=== PATIENT | male | born 1950 | race Caucasian/White ===

== ENCOUNTER 2020-07-05 17:06 | Inpatient (IN) | payer SELFPAY ==
[2020-07-05] MEDS ORDERED: Ondansetron PF 4 MG/2 ML Vial ONE (18:14)
[2020-07-05] MEDS ORDERED: Morphine 4 MG/ML VIAL ONE (18:14)
[2020-07-05] MEDS ORDERED: Morphine 2 MG/ML VIAL SLOW IVP PRN (18:39)
[2020-07-05] MEDS ORDERED: Dextrose 5% in Water 1,000 ML IV PRN (18:39)
[2020-07-05] MEDS ORDERED: hydrALAZINE 20 MG/ML VIAL SLOW IVP PRN (18:39)
[2020-07-05] MEDS ORDERED: Dextrose 50% Abboject 50 ML SYRINGE SLOW IVP PRN (18:39)
[2020-07-05] MEDS ORDERED: traMADol HCl 50 MG TAB PO PRN (18:39)
[2020-07-05] MEDS ORDERED: Ondansetron ODT 4 MG TAB PO PRN (18:39)
[2020-07-05] MEDS ORDERED: Ondansetron PF 4 MG/2 ML Vial IVP PRN (18:39)
[2020-07-05 18:40] LABS: #Lymphocytes 1.1 thou/uL (1.20-3.40); #Monocytes 0.8 thou/uL (0.11-0.59); #Neutrophils 7.4 thou/uL (1.40-6.50); %Basophils 0.3 % (0.0-1.0); %Eosinophils 0.3 % (0.0-10.0); %Lymphocytes 11.7 % (21.0-51.0); %Monocytes 8.9 % (0.0-10.0); %Neutrophils 78.8 % (42.0-75.0); Hemoglobin 16.2 g/dL (14.0-18.0); Mean Corpuscular HGB CONC 34.4 g/dL (32.0-36.0); Mean Corpuscular Hemoglobin 35.5 pg (27.0-31.0); Platelet Count 189 thou/uL (130-400); RBC Distribution Width 11.9 % (11.5-14.5); Red Blood Cell (RBC) Count 4.56 mill/uL (4.70-6.10); White Blood Cell (WBC) Count 9.3 thou/uL (4.8-10.8)
[2020-07-05 18:58] LABS: ALT (SGPT) 12 U/L (8-55); AST (SGOT) 22 U/L (5-34); Albumin 4.3 g/dL (3.4-4.8); Alkaline Phosphatase 77 U/L (40-110); Anion Gap 18 mmol/L (10-20); BUN (Urea Nitrogen) 11 mg/dL (8.4-25.7); Bilirubin, Total 0.8 mg/dL (0.2-1.2); Calc. Creatinine Clearance 0 mL/min (70-130); Calcium 9.1 mg/dL (7.8-10.44); Carbon Dioxide 22 mmol/L (23-31); Chloride 93 mmol/L (98-107); Globulin 3.1 g/dL (2.4-3.5); Glucose 99 mg/dL (83-110); Potassium 3.9 mmol/L (3.5-5.1); Protein, Total 7.4 g/dL (5.8-8.1); Sodium 129 mmol/L (136-145)
[2020-07-05] MEDS: Ibuprofen 600 MG TAB PO SCH (20:29)
[2020-07-05] MEDS: Famotidine 20 MG TAB PO SCH (20:29)
[2020-07-05] MEDS: Senokot S 8.6-50 MG TAB PO SCH (20:29)
[2020-07-05] MEDS: traMADol HCl 50 MG TAB PO PRN (20:30)
[2020-07-05] MEDS: Acetaminophen 325 MG TAB PO SCH (20:30)
[2020-07-05 21:59] VITALS: BMI 17.0
[2020-07-05] MEDS: Sodium Chloride 0.9% 1,000 ML IV SCH (22:41)
[2020-07-06] MEDS: Acetaminophen 325 MG TAB PO SCH ×4 (01:02→21:11)
[2020-07-06] MEDS: Cyclobenzaprine 10 MG TAB PO PRN ×2 (01:02→16:42)
[2020-07-06] MEDS: Ibuprofen 600 MG TAB PO SCH ×3 (03:10→21:12)
[2020-07-06] MEDS: traMADol HCl 50 MG TAB PO PRN ×3 (03:10→21:13)
[2020-07-06 04:35] LABS: SARS-CoV-2 PCR by NAA Not Detected (NotDetected)
[2020-07-06 05:28] LABS: #Basophils 0.1 thou/uL (0.0-0.2); #Eosinphils 0.3 thou/uL (0.0-0.7); #Lymphocytes 1.7 thou/uL (1.20-3.40); #Monocytes 0.7 thou/uL (0.11-0.59); #Neutrophils 4.6 thou/uL (1.40-6.50); %Basophils 0.7 % (0.0-1.0); %Eosinophils 3.9 % (0.0-10.0); %Lymphocytes 22.6 % (21.0-51.0); %Monocytes 9.2 % (0.0-10.0); %Neutrophils 63.6 % (42.0-75.0); Hemoglobin 14.3 g/dL (14.0-18.0); Mean Corpuscular HGB CONC 33.1 g/dL (32.0-36.0); Mean Corpuscular Hemoglobin 34.4 pg (27.0-31.0); Mean Platelet Volume 6.9 fL (7.4-10.4); Platelet Count 168 thou/uL (130-400); Red Blood Cell (RBC) Count 4.16 mill/uL (4.70-6.10); White Blood Cell (WBC) Count 7.3 thou/uL (4.8-10.8)
[2020-07-06 05:36] LABS: PTT 35.5 sec (22.9-36.1); Prothrombin Time 13.8 sec (12.0-14.7)
[2020-07-06 05:49] LABS: Anion Gap 14 mmol/L (10-20); BUN (Urea Nitrogen) 16 mg/dL (8.4-25.7); Calc. Creatinine Clearance 69 mL/min (70-130); Calcium 8.4 mg/dL (7.8-10.44); Carbon Dioxide 24 mmol/L (23-31); Chloride 99 mmol/L (98-107); Glucose 93 mg/dL (80-115); Potassium 3.6 mmol/L (3.5-5.1); Sodium 133 mmol/L (136-145)
[2020-07-06] MEDS ORDERED: Fentanyl 100 MCG/2 ML VIAL ONE ×4 (06:58→11:40)
[2020-07-06] MEDS ORDERED: Midazolam HCl 2 mg/2 ml Vial ONE (06:58)
[2020-07-06] MEDS ORDERED: CEFAZOLIN 2 GM in Premix Bag 1 BAG IVPB SCH (07:30)
[2020-07-06] MEDS: Sodium Chloride 0.9% 1,000 ML IV SCH (07:56)
[2020-07-06 08:50] LABS: Phosphorus 3.8 mg/dL (2.3-4.7)
[2020-07-06] MEDS ORDERED: Dexamethasone 20 MG/5 ML VIAL ONE (09:01)
[2020-07-06] MEDS ORDERED: Glycopyrrolate 0.2 MG/ML 5 ML SYRINGE ONE (09:01)
[2020-07-06] MEDS ORDERED: ePHEDrine 50 MG/ML VIAL ONE (09:01)
[2020-07-06] MEDS ORDERED: PROPOFOL 200 MG/20 ML VIAL ONE (09:01)
[2020-07-06] MEDS ORDERED: Ondansetron PF 4 MG/2 ML Vial ONE (09:01)
[2020-07-06] MEDS ORDERED: PHENYLEPHRINE-NS 100 MCG/ML 10 ML SYRINGE ONE (09:01)
[2020-07-06] MEDS ORDERED: Rocuronium Bromide 10 MG/ML (10ML VIAL) ONE (09:01)
[2020-07-06] MEDS ORDERED: Lidocaine 1% PF 5 ML VIAL ONE (09:01)
[2020-07-06] MEDS: Polyethylene Glycol 3350 17 GM Packet PO SCH (10:10)
[2020-07-06] MEDS: Famotidine 20 MG TAB PO SCH ×2 (10:10→21:12)
[2020-07-06] MEDS: Senokot S 8.6-50 MG TAB PO SCH ×2 (10:10→21:12)
[2020-07-06] MEDS ORDERED: SUGAMMADEX SODIUM 200 MG/2 ML VIAL ONE (10:28)
[2020-07-06] MEDS ORDERED: Promethazine HCl 25 MG/ML VIAL SLOW IVP PRN (10:52)
[2020-07-06] MEDS ORDERED: Promethazine HCl 25 MG/ML VIAL IM PRN (10:52)
[2020-07-06] MEDS ORDERED: Ondansetron HCl/PF 4 MG/2 ML Vial IVP PRN (10:52)
[2020-07-06] MEDS: CEFAZOLIN 2 GM in Premix Bag 1 BAG IVPB SCH ×2 (14:13→21:13)
[2020-07-06] MEDS ORDERED: Potassium Phosphate 15 MMOL in Sodium Chloride 0.9% 250 ML 250 ML IVPB SCH (15:00)
[2020-07-07] MEDS: Ibuprofen 600 MG TAB PO SCH ×3 (04:01→20:25)
[2020-07-07] MEDS: Cyclobenzaprine 10 MG TAB PO PRN ×2 (04:01→15:34)
[2020-07-07] MEDS: Acetaminophen 325 MG TAB PO SCH ×4 (04:02→20:24)
[2020-07-07 06:00] LABS: Hemoglobin 12.2 g/dL (14.0-18.0); Mean Corpuscular HGB CONC 34.5 g/dL (32.0-36.0); Mean Corpuscular Hemoglobin 36.4 pg (27.0-31.0); Mean Platelet Volume 6.9 fL (7.4-10.4); Platelet Count 158 thou/uL (130-400); Red Blood Cell (RBC) Count 3.35 mill/uL (4.70-6.10); White Blood Cell (WBC) Count 8.9 thou/uL (4.8-10.8)
[2020-07-07 06:31] LABS: Anion Gap 13 mmol/L (10-20); BUN (Urea Nitrogen) 13 mg/dL (8.4-25.7); Calc. Creatinine Clearance 79 mL/min (70-130); Calcium 8.2 mg/dL (7.8-10.44); Carbon Dioxide 24 mmol/L (23-31); Chloride 101 mmol/L (98-107); Glucose 126 mg/dL (80-115); Phosphorus 2.8 mg/dL (2.3-4.7); Potassium 3.8 mmol/L (3.5-5.1); Sodium 134 mmol/L (136-145)
[2020-07-07] MEDS: Famotidine 20 MG TAB PO SCH ×2 (08:33→20:24)
[2020-07-07] MEDS: Polyethylene Glycol 3350 17 GM Packet PO SCH (08:34)
[2020-07-07] MEDS: Senokot S 8.6-50 MG TAB PO SCH ×2 (08:34→20:23)
[2020-07-07] MEDS: traMADol HCl 50 MG TAB PO PRN ×2 (08:36→15:34)
[2020-07-07] MEDS ORDERED: Aspirin 81 mg Enteric Coated Tablet PO SCH (10:30)
[2020-07-07] MEDS: Gabapentin 300 MG CAP PO SCH ×2 (14:53→20:23)
[2020-07-07] MEDS: Aspirin 81 mg Enteric Coated Tablet PO SCH (20:23)
[2020-07-08] MEDS: Acetaminophen 325 MG TAB PO SCH ×4 (04:08→20:23)
[2020-07-08] MEDS: traMADol HCl 50 MG TAB PO PRN ×2 (05:20→13:22)
[2020-07-08] MEDS: Cyclobenzaprine 10 MG TAB PO PRN ×2 (05:21→15:14)
[2020-07-08] MEDS: Ibuprofen 600 MG TAB PO SCH ×3 (05:51→20:24)
[2020-07-08 06:00] LABS: Hemoglobin 11.9 g/dL (14.0-18.0); Mean Corpuscular HGB CONC 33.3 g/dL (32.0-36.0); Mean Corpuscular Hemoglobin 35.5 pg (27.0-31.0); Platelet Count 164 thou/uL (130-400); Red Blood Cell (RBC) Count 3.35 mill/uL (4.70-6.10); White Blood Cell (WBC) Count 7.6 thou/uL (4.8-10.8)
[2020-07-08] MEDS: Aspirin 81 mg Enteric Coated Tablet PO SCH ×2 (09:22→20:21)
[2020-07-08] MEDS: Gabapentin 300 MG CAP PO SCH ×3 (09:23→20:22)
[2020-07-08] MEDS: Famotidine 20 MG TAB PO SCH ×2 (09:23→20:21)
[2020-07-08] MEDS: Polyethylene Glycol 3350 17 GM Packet PO SCH (09:24)
[2020-07-08] MEDS: Senokot S 8.6-50 MG TAB PO SCH ×2 (09:24→20:22)
[2020-07-08] MEDS: Lisinopril 5 MG TAB PO SCH (20:21)
[2020-07-09] MEDS: Acetaminophen 325 MG TAB PO SCH ×4 (02:22→20:55)
[2020-07-09] MEDS: Ibuprofen 600 MG TAB PO SCH ×3 (04:00→21:00)
[2020-07-09] MEDS: Gabapentin 300 MG CAP PO SCH ×3 (07:47→21:00)
[2020-07-09] MEDS: Aspirin 81 mg Enteric Coated Tablet PO SCH ×2 (07:47→21:00)
[2020-07-09] MEDS: Polyethylene Glycol 3350 17 GM Packet PO SCH (07:47)
[2020-07-09] MEDS: Famotidine 20 MG TAB PO SCH (07:47)
[2020-07-09] MEDS: Senokot S 8.6-50 MG TAB PO SCH ×2 (07:47→21:01)
[2020-07-09] MEDS: traMADol HCl 50 MG TAB PO PRN ×2 (11:10→20:59)
[2020-07-09] MEDS: Cyclobenzaprine 10 MG TAB PO PRN (14:05)
[2020-07-09] MEDS: Lisinopril 5 MG TAB PO SCH (21:00)
[2020-07-10] MEDS: Acetaminophen 325 MG TAB PO SCH ×4 (02:21→20:29)
[2020-07-10] MEDS: Ibuprofen 600 MG TAB PO SCH ×3 (03:12→20:29)
[2020-07-10] MEDS: traMADol HCl 50 MG TAB PO PRN ×2 (09:27→18:33)
[2020-07-10] MEDS: Aspirin 81 mg Enteric Coated Tablet PO SCH ×2 (09:29→20:28)
[2020-07-10] MEDS: Senokot S 8.6-50 MG TAB PO SCH ×2 (09:29→20:31)
[2020-07-10] MEDS: Polyethylene Glycol 3350 17 GM Packet PO SCH (09:29)
[2020-07-10] MEDS: Gabapentin 300 MG CAP PO SCH ×3 (09:29→20:30)
[2020-07-10] MEDS: Cyclobenzaprine 10 MG TAB PO PRN ×2 (10:13→20:31)
[2020-07-10] MEDS: Lisinopril 5 MG TAB PO SCH (20:29)
[2020-07-11] MEDS: traMADol HCl 50 MG TAB PO PRN (02:42)
[2020-07-11] MEDS: Acetaminophen 325 MG TAB PO SCH ×3 (02:42→15:08)
[2020-07-11] MEDS: Ibuprofen 600 MG TAB PO SCH ×2 (05:13→11:58)
[2020-07-11] MEDS: Gabapentin 300 MG CAP PO SCH ×2 (08:32→15:08)
[2020-07-11] MEDS: Aspirin 81 mg Enteric Coated Tablet PO SCH (08:33)
[2020-07-11] MEDS: Senokot S 8.6-50 MG TAB PO SCH (08:35)
[2020-07-11] MEDS: Polyethylene Glycol 3350 17 GM Packet PO SCH (08:35)
[2020-07-11 11:47] VITALS: TEMP 97.8
[2020-07-11 15:49] VITALS: BP 145/62
== END 2020-07-11 19:20 | disposition home or self-care (01) | DRG 522 ==
LOC: ERS 17:06 → EDBD 18:39 → SURG A 18:39
PROVIDERS: ADMIT Specialist; ATTEND Specialist
PROC: 0SRR0JA Replacement of Right Hip Joint, Femoral Surface with Synthetic Substitute, Uncemented, Open Approach (ICD-10-PCS; principal; 2020-07-06)
DX: S72.001A Fracture of unspecified part of neck of right femur, initial encounter for closed fracture (principal); E87.1 Hypo-osmolality and hyponatremia; W18.09XA Striking against other object with subsequent fall, initial encounter; J44.9 Chronic obstructive pulmonary disease, unspecified; Z20.822 Contact with and (suspected) exposure to COVID-19; F17.210 Nicotine dependence, cigarettes, uncomplicated; Z90.89 Acquired absence of other organs
CPT/HCPCS: 36415; 71045; 72170; 80048; 80053; 83735; 84100; 85025; 85027; 85610; 85730; 87635; 93005; 94640; 96374; 96375; C1776; G0390; J0690; J1100; J2250; J2270; J2405; J2704; J3010; J3490; J7050; J7620; U0003; U0005

== ENCOUNTER 2020-07-23 14:07 | Emergency (ER) | payer SELFPAY | END 2020-07-23 15:32 | disposition home or self-care (01) | LOC: ERS 14:07 | DX: S71.012D Laceration without foreign body, left hip, subsequent encounter (principal); F17.210 Nicotine dependence, cigarettes, uncomplicated ==

== ENCOUNTER 2023-02-13 18:44 | Inpatient (IN) | payer MEDICARE, SELFPAY ==
[~2023-02-13 18:44] MED LIST: Iopamidol 370 76% 100 ML VIAL ONE
[2023-02-13 19:39] LABS: #Basophils 0.1 thou/uL (0.0-0.2); #Eosinphils 0.3 thou/uL (0.0-0.7); #Monocytes 0.8 thou/uL (0.11-0.59); %Basophils 0.9 % (0.0-1.0); %Lymphocytes 22.4 % (21.0-51.0); %Monocytes 9.8 % (0.0-10.0); %Neutrophils 62.6 % (42.0-75.0); Hematocrit 43.5 % (42.0-52.0); Hemoglobin 14.9 g/dL (14.0-18.0); Mean Corpuscular HGB CONC 34.3 g/dL (32.0-36.0); Mean Corpuscular Hemoglobin 33.3 pg (27.0-31.0); Mean Corpuscular Volume 97.3 fl (78.0-98.0); Mean Platelet Volume 9.3 fL (7.4-10.4); Platelet Count 191 10x3/uL (130-400); RBC Distribution Width 12.4 % (11.5-14.5); Red Blood Cell (RBC) Count 4.47 mill/uL (4.70-6.10)
[2023-02-13 19:51] LABS: Amphetamine Not Detected (NotDetected); Barbiturates Screen Detected (NotDetected); Benzodiazepine Screen Not Detected (NotDetected); Cocaine Metabolite Screen Not Detected (NotDetected); Methadone Not Detected (NotDetected); Methamphetamine Not Detected (NotDetected); Opiate Screen Not Detected (NotDetected); Oxycodone Screen Not Detected (NotDetected); Phencyclidine (PCP) Not Detected (NotDetected); THC/Cannabinoid Screen Not Detected (NotDetected); Tricyclic Screen Not Detected (NotDetected)
[2023-02-13 20:03] LABS: Acetaminophen Less than 10 mcg/mL (10.0-30.0); Alcohol Less than 10.0 mg/dL (Less than 10); Lipase 68 U/L (8-78); Magnesium 2.1 mg/dL (1.6-2.6); Salicylate Less than 8.0 mg/dL (15.0-30.0)
[2023-02-13 20:05] LABS: Bacteria/HPF None Seen HPF (None Seen); Bilirubin Negative (Negative); Blood, Urine Negative (Negative); CAUTI Indications for Culture Alt mental st,lethar; Clarity Clear (Clear); Glucose, Urine (Dipstick) 200 mg/dL (Negative); Ketone, Urine Negative (Negative); Leukocyte Negative Leu/uL (Negative); Nitrite Negative (Negative); Protein, Urine (Dipstick) Negative (Neg-Trace); RBC/HPF 0-3 HPF (0-3); Specific Gravity, Urine 1.013 (1.002-1.036); Squamous Epithelial None Seen HPF (0-3); Urobilinogen Normal mg/dL (Less than 2); WBC/HPF 0-3 HPF (0-3); pH, Urine 5.5 (5.0-9.0)
[2023-02-13 20:06] LABS: Urine Culture Reflex No No
[2023-02-13 20:08] LABS: ALT (SGPT) 16 U/L (8-55); AST (SGOT) 26 U/L (5-34); Alkaline Phosphatase 73 U/L (40-110); Anion Gap 13 mmol/L (10-20); BUN (Urea Nitrogen) 22 mg/dL (8.4-25.7); Bilirubin, Total 0.3 mg/dL (0.2-1.2); CK (CPK) 98 U/L (30-200); Calc. Creatinine Clearance 0 mL/min (70-130); Calcium 9.9 mg/dL (7.8-10.44); Carbon Dioxide 32 mmol/L (23-31); Chloride 91 mmol/L (98-107); Estimated GFR 92; Globulin 2.8 g/dL (2.4-3.5); Glucose 62 mg/dL (83-110); Potassium 4.1 mmol/L (3.5-5.1); Protein, Total 7.8 g/dL (5.8-8.1); Sodium 132 mmol/L (136-145)
[2023-02-13 20:12] LABS: Troponin I Less than 0.010 ng/mL (< 0.028)
[2023-02-13] MEDS ORDERED: niCARdipine 25 MG/10 ML SDV ONE (20:13)
[2023-02-13] MEDS ORDERED: levETIRAcetam 500 MG/5 ML VIAL SLOW IVP SCH (20:30)
[2023-02-13] MEDS ORDERED: niCARdipine 25 MG in Sodium Chloride 0.9% 250 ML 250 ML IVPB PRN (21:17)
[2023-02-13] MEDS ORDERED: Electrolyte Replacement Protocol 1 EACH IVPB PRN (21:17)
[2023-02-13] MEDS ORDERED: levETIRAcetam 500 MG/5 ML VIAL ONE (21:19)
[2023-02-13] MEDS ORDERED: Calcium Carbonate 500 MG ChewTAB PO PRN (21:34)
[2023-02-13] MEDS ORDERED: Ondansetron ODT 4 MG TAB PO PRN (21:34)
[2023-02-13] MEDS ORDERED: Ondansetron PF 4 MG/2 ML Vial IVP PRN (21:34)
[2023-02-13] MEDS: Lorazepam 1 MG TAB PO SCH (22:00)
[2023-02-13 22:16] LABS: Phosphorus 3.2 mg/dL (2.3-4.7)
[2023-02-13 22:57] LABS: HBCM Index 0.07 S/CO (0-0.79); HBSAg Index 0.21 S/CO (0-0.99); HIV (1/2) Antibody/Antigen Non-Reactive (NonReactive); HIV 1/2 INDEX 0.19 S/CO (<1.00); Hep A IgM AB Non-Reactive S/CO (NonReactive); Hep A IgM S/CO 0.43 S/CO (0-0.79); Hep B Surf Ag Non-Reactive S/CO (NonReactive); Hep C IgG Ab Non-Reactive S/CO (NonReactive); Hepatitis B Core IgM Abs Non-Reactive S/CO (NonReactive)
[2023-02-13 23:07] LABS: Troponin I Less than 0.010 ng/mL (< 0.028)
[2023-02-14] MEDS ORDERED: Ipratropium/Albuterol 3 ML NEB NEB PRN (00:15)
[2023-02-14] MEDS: Lactated Ringer's 1,000 ML IV SCH ×2 (00:58→16:51)
[2023-02-14] MEDS: Acetaminophen 325 MG TAB PO PRN ×3 (00:58→16:12)
[2023-02-14] MEDS: Thiamine HCl 200 MG/2 ML VIAL SLOW IVP SCH ×2 (02:06→21:42)
[2023-02-14] MEDS: Lorazepam 1 MG TAB PO SCH ×2 (04:00→08:34)
[2023-02-14 04:02] LABS: #Eosinphils 0.5 thou/uL (0.0-0.7); #Monocytes 0.9 thou/uL (0.11-0.59); #Neutrophils 4.6 thou/uL (1.40-6.50); %Basophils 0.5 % (0.0-1.0); %Eosinophils 6.1 % (0.0-10.0); %Lymphocytes 23.8 % (21.0-51.0); %Monocytes 11.3 % (0.0-10.0); %Neutrophils 57.9 % (42.0-75.0); Hematocrit 35.5 % (42.0-52.0); Hemoglobin 12.3 g/dL (14.0-18.0); Mean Corpuscular HGB CONC 34.6 g/dL (32.0-36.0); Mean Corpuscular Hemoglobin 33.5 pg (27.0-31.0); Mean Corpuscular Volume 96.7 fl (78.0-98.0); Mean Platelet Volume 9.3 fL (7.4-10.4); Platelet Count 170 10x3/uL (130-400); RBC Distribution Width 12.5 % (11.5-14.5); Red Blood Cell (RBC) Count 3.67 mill/uL (4.70-6.10); White Blood Cell (WBC) Count 7.9 10x3/uL (4.8-10.8)
[2023-02-14 04:32] LABS: ALT (SGPT) 11 U/L (8-55); AST (SGOT) 19 U/L (5-34); Albumin 3.6 g/dL (3.4-4.8); Alkaline Phosphatase 58 U/L (40-110); Anion Gap 11 mmol/L (10-20); BUN (Urea Nitrogen) 13 mg/dL (8.4-25.7); Bilirubin, Total 0.4 mg/dL (0.2-1.2); Calc. Creatinine Clearance 63 mL/min (70-130); Calcium 8.4 mg/dL (7.8-10.44); Carbon Dioxide 27 mmol/L (23-31); Chloride 101 mmol/L (98-107); Cholesterol 124 mg/dl (< 200 Desired); Estimated GFR 99; Globulin 1.9 g/dL (2.4-3.5); Glucose 101 mg/dL (83-110); HDL Cholesterol 42 mg/dL (>60 Neg Risk); LDL Cholesterol, Calculated 73 mg/dL; Potassium 3.7 mmol/L (3.5-5.1); Protein, Total 5.5 g/dL (5.8-8.1); Sodium 135 mmol/L (136-145); Triglycerides 44 mg/dL (Less than 150)
[2023-02-14] MEDS: Famotidine/PF 20 mg/2ml Vial SLOW IVP SCH ×2 (08:56→20:03)
[2023-02-14] MEDS: levETIRAcetam 500 MG TAB PO SCH ×2 (08:56→20:03)
[2023-02-14] MEDS: Multivit, Therapeutic 1 TAB PO SCH (08:56)
[2023-02-14] MEDS: Folic Acid 1 MG TAB PO SCH (08:56)
[2023-02-14] MEDS: hydrALAZINE 20 MG/ML VIAL SLOW IVP PRN (16:14)
[2023-02-14] MEDS: Labetalol HCl 100 MG/20 ML VIAL SLOW IVP PRN (19:08)
[2023-02-15] MEDS: hydrALAZINE 20 MG/ML VIAL SLOW IVP PRN ×2 (04:24→09:34)
[2023-02-15] MEDS: Labetalol HCl 100 MG/20 ML VIAL SLOW IVP PRN (06:06)
[2023-02-15] MEDS ORDERED: Carvedilol 6.25 MG TAB PO SCH (08:15)
[2023-02-15 08:23] LABS: #Basophils 0.1 thou/uL (0.0-0.2); #Eosinphils 0.5 thou/uL (0.0-0.7); #Monocytes 0.9 thou/uL (0.11-0.59); %Basophils 0.5 % (0.0-1.0); %Eosinophils 4.9 % (0.0-10.0); %Lymphocytes 15.9 % (21.0-51.0); %Monocytes 8.7 % (0.0-10.0); %Neutrophils 69.7 % (42.0-75.0); Hematocrit 38.8 % (42.0-52.0); Hemoglobin 13.2 g/dL (14.0-18.0); Mean Corpuscular Hemoglobin 33.3 pg (27.0-31.0); Platelet Count 208 10x3/uL (130-400); RBC Distribution Width 12.6 % (11.5-14.5); Red Blood Cell (RBC) Count 3.96 mill/uL (4.70-6.10); White Blood Cell (WBC) Count 10.1 10x3/uL (4.8-10.8)
[2023-02-15 08:46] LABS: Anion Gap 12 mmol/L (10-20); BUN (Urea Nitrogen) 14 mg/dL (8.4-25.7); Calc. Creatinine Clearance 61 mL/min (70-130); Calcium 8.6 mg/dL (7.8-10.44); Carbon Dioxide 26 mmol/L (23-31); Chloride 100 mmol/L (98-107); Estimated GFR 95; Glucose 113 mg/dL (83-110); Potassium 3.7 mmol/L (3.5-5.1); Sodium 134 mmol/L (136-145)
[2023-02-15] MEDS: Multivit, Therapeutic 1 TAB PO SCH (09:33)
[2023-02-15] MEDS: levETIRAcetam 500 MG TAB PO SCH ×2 (09:33→21:37)
[2023-02-15] MEDS: Folic Acid 1 MG TAB PO SCH (09:33)
[2023-02-15] MEDS: Famotidine/PF 20 mg/2ml Vial SLOW IVP SCH ×2 (09:34→21:37)
[2023-02-15] MEDS: Acetaminophen 325 MG TAB PO PRN (09:49)
[2023-02-15] MEDS: Carvedilol 6.25 MG TAB PO SCH (17:44)
[2023-02-15] MEDS: Atorvastatin Calcium 40 MG TAB PO SCH (21:37)
[2023-02-15] MEDS: Thiamine HCl 200 MG/2 ML VIAL SLOW IVP SCH (21:37)
[2023-02-16] MEDS: hydrALAZINE 20 MG/ML VIAL SLOW IVP PRN ×5 (04:23→23:50)
[2023-02-16 05:35] LABS: #Basophils 0.1 thou/uL (0.0-0.2); #Eosinphils 0.6 thou/uL (0.0-0.7); #Neutrophils 5.6 thou/uL (1.40-6.50); %Basophils 0.6 % (0.0-1.0); %Eosinophils 6.7 % (0.0-10.0); %Lymphocytes 22.4 % (21.0-51.0); %Monocytes 10.2 % (0.0-10.0); %Neutrophils 59.9 % (42.0-75.0); Hematocrit 38.3 % (42.0-52.0); Mean Corpuscular HGB CONC 33.9 g/dL (32.0-36.0); Mean Corpuscular Hemoglobin 33.1 pg (27.0-31.0); Mean Corpuscular Volume 97.5 fl (78.0-98.0); Mean Platelet Volume 9.2 fL (7.4-10.4); Platelet Count 218 10x3/uL (130-400); RBC Distribution Width 12.9 % (11.5-14.5); Red Blood Cell (RBC) Count 3.93 mill/uL (4.70-6.10); White Blood Cell (WBC) Count 9.4 10x3/uL (4.8-10.8)
[2023-02-16 06:04] LABS: Anion Gap 13 mmol/L (10-20); BUN (Urea Nitrogen) 18 mg/dL (8.4-25.7); Calc. Creatinine Clearance 57 mL/min (70-130); Calcium 8.7 mg/dL (7.8-10.44); Carbon Dioxide 27 mmol/L (23-31); Chloride 99 mmol/L (98-107); Estimated GFR 93; Glucose 100 mg/dL (83-110); Potassium 3.8 mmol/L (3.5-5.1); Sodium 135 mmol/L (136-145)
[2023-02-16] MEDS: Carvedilol 6.25 MG TAB PO SCH ×2 (08:34→16:44)
[2023-02-16] MEDS: levETIRAcetam 500 MG TAB PO SCH ×2 (08:35→21:29)
[2023-02-16] MEDS: Multivit, Therapeutic 1 TAB PO SCH (08:35)
[2023-02-16] MEDS: Famotidine/PF 20 mg/2ml Vial SLOW IVP SCH ×2 (08:37→21:29)
[2023-02-16] MEDS: Folic Acid 1 MG TAB PO SCH (08:38)
[2023-02-16] MEDS: Atorvastatin Calcium 40 MG TAB PO SCH (21:29)
[2023-02-16] MEDS: Thiamine 100 MG TAB PO SCH (21:29)
[2023-02-17 05:04] LABS: #Basophils 0.1 thou/uL (0.0-0.2); #Eosinphils 0.6 thou/uL (0.0-0.7); #Monocytes 0.9 thou/uL (0.11-0.59); #Neutrophils 4.9 thou/uL (1.40-6.50); %Basophils 0.6 % (0.0-1.0); %Eosinophils 7.5 % (0.0-10.0); %Lymphocytes 21.6 % (21.0-51.0); %Monocytes 11.2 % (0.0-10.0); %Neutrophils 58.7 % (42.0-75.0); Hematocrit 37.8 % (42.0-52.0); Hemoglobin 12.8 g/dL (14.0-18.0); Mean Corpuscular HGB CONC 33.9 g/dL (32.0-36.0); Mean Corpuscular Hemoglobin 33.5 pg (27.0-31.0); Mean Platelet Volume 9.2 fL (7.4-10.4); Platelet Count 234 10x3/uL (130-400); RBC Distribution Width 12.9 % (11.5-14.5); Red Blood Cell (RBC) Count 3.82 mill/uL (4.70-6.10); White Blood Cell (WBC) Count 8.4 10x3/uL (4.8-10.8)
[2023-02-17 05:35] LABS: Anion Gap 12 mmol/L (10-20); BUN (Urea Nitrogen) 16 mg/dL (8.4-25.7); Calc. Creatinine Clearance 61 mL/min (70-130); Calcium 8.9 mg/dL (7.8-10.44); Carbon Dioxide 28 mmol/L (23-31); Chloride 99 mmol/L (98-107); Estimated GFR 94; Glucose 100 mg/dL (83-110); Potassium 3.6 mmol/L (3.5-5.1); Sodium 135 mmol/L (136-145)
[2023-02-17] MEDS: Carvedilol 6.25 MG TAB PO SCH ×2 (09:36→18:17)
[2023-02-17] MEDS: levETIRAcetam 500 MG TAB PO SCH ×2 (09:36→22:27)
[2023-02-17] MEDS: Folic Acid 1 MG TAB PO SCH (09:36)
[2023-02-17] MEDS: Multivit, Therapeutic 1 TAB PO SCH (09:37)
[2023-02-17] MEDS: Famotidine/PF 20 mg/2ml Vial SLOW IVP SCH (09:46)
[2023-02-17] MEDS: Famotidine 20 MG TAB PO SCH ×2 (10:02→22:27)
[2023-02-17] MEDS ORDERED: Lisinopril 10 MG TAB PO SCH (12:00)
[2023-02-17] MEDS: Thiamine 100 MG TAB PO SCH (22:25)
[2023-02-17] MEDS: Atorvastatin Calcium 40 MG TAB PO SCH (22:27)
[2023-02-17] MEDS: Acetaminophen 325 MG TAB PO PRN (22:27)
[2023-02-18] MEDS: Acetaminophen 325 MG TAB PO PRN (04:30)
[2023-02-18 05:13] LABS: #Basophils 0.1 thou/uL (0.0-0.2); #Eosinphils 0.7 thou/uL (0.0-0.7); #Neutrophils 3.9 thou/uL (1.40-6.50); %Basophils 0.8 % (0.0-1.0); %Eosinophils 8.8 % (0.0-10.0); %Lymphocytes 26.3 % (21.0-51.0); %Monocytes 12.7 % (0.0-10.0); Hematocrit 36.2 % (42.0-52.0); Hemoglobin 12.2 g/dL (14.0-18.0); Mean Corpuscular HGB CONC 33.7 g/dL (32.0-36.0); Mean Corpuscular Hemoglobin 33.6 pg (27.0-31.0); Mean Corpuscular Volume 99.7 fl (78.0-98.0); Mean Platelet Volume 8.9 fL (7.4-10.4); Platelet Count 213 10x3/uL (130-400); RBC Distribution Width 12.7 % (11.5-14.5); Red Blood Cell (RBC) Count 3.63 mill/uL (4.70-6.10); White Blood Cell (WBC) Count 7.6 10x3/uL (4.8-10.8)
[2023-02-18 05:46] LABS: Anion Gap 14 mmol/L (10-20); BUN (Urea Nitrogen) 21 mg/dL (8.4-25.7); Calc. Creatinine Clearance 56 mL/min (70-130); Calcium 8.5 mg/dL (7.8-10.44); Carbon Dioxide 27 mmol/L (23-31); Chloride 99 mmol/L (98-107); Estimated GFR 92; Glucose 115 mg/dL (83-110); Potassium 3.8 mmol/L (3.5-5.1); Sodium 136 mmol/L (136-145)
[2023-02-18 08:01] VITALS: TEMP 97.8
[2023-02-18] MEDS ORDERED: Lisinopril 10 MG TAB PO SCH (09:00)
[2023-02-18 09:45] VITALS: BMI 15.6
[2023-02-18] MEDS: Famotidine 20 MG TAB PO SCH (10:54)
[2023-02-18] MEDS: Multivit, Therapeutic 1 TAB PO SCH (10:54)
[2023-02-18] MEDS: levETIRAcetam 500 MG TAB PO SCH (10:54)
[2023-02-18 10:55] VITALS: BP 119/69
[2023-02-18] MEDS: Folic Acid 1 MG TAB PO SCH (10:55)
[2023-02-18] MEDS: Carvedilol 6.25 MG TAB PO SCH (10:55)
== END 2023-02-18 11:10 | disposition swing bed (61) | DRG 64 ==
LOC: ERS 18:44 → CCU 21:34 → 2SE 02-14 18:39
PROVIDERS: ADMIT Student in an Organized Health Care Education/Training Program; ATTEND Internal Medicine
PROC: 4A00X4Z Measurement of Central Nervous Electrical Activity, External Approach (ICD-10-PCS; principal; 2023-02-14)
DX: I61.1 Nontraumatic intracerebral hemorrhage in hemisphere, cortical (principal); G93.41 Metabolic encephalopathy; G93.6 Cerebral edema; J96.01 Acute respiratory failure with hypoxia; E87.1 Hypo-osmolality and hyponatremia; R44.3 Hallucinations, unspecified; E44.0 Moderate protein-calorie malnutrition; Z59.00 Homelessness unspecified; Z68.1 Body mass index [BMI] 19.9 or less, adult; I10 Essential (primary) hypertension; J44.9 Chronic obstructive pulmonary disease, unspecified; F17.210 Nicotine dependence, cigarettes, uncomplicated; R41.3 Other amnesia; F19.10 Other psychoactive substance abuse, uncomplicated; I71.40 Abdominal aortic aneurysm, without rupture, unspecified; D16.4 Benign neoplasm of bones of skull and face; R91.1 Solitary pulmonary nodule; I95.1 Orthostatic hypotension; Z71.6 Tobacco abuse counseling; Z79.82 Long term (current) use of aspirin; Z79.899 Other long term (current) drug therapy; Z82.49 Family history of ischemic heart disease and other diseases of the circulatory system; Z90.89 Acquired absence of other organs; Z90.79 Acquired absence of other genital organ(s); Z98.890 Other specified postprocedural states; Z91.148 Patient's other noncompliance with medication regimen for other reason
CPT/HCPCS: 36415; 36416; 70450; 70496; 71045; 71260; 72125; 74177; 80048; 80053; 80061; 80074; 80306; 80307; 81001; 82140; 82550; 83690; 83735; 84100; 84443; 84484; 85025; 87389; 93005; 94640; 95711; 95819; 95957; 96361; 96374; J0360; J1953; J3411; J7050; J7120; J7620; Q9967; S0028